=== PATIENT | female | born 1960 | race Caucasian/White ===

== ENCOUNTER → 2022-11-06 13:29 | Outpatient (CLI) | payer BC, SELFPAY ==
--- NOTE | ~2022-11-06 | MR_ITS ---
EXAMINATION: MR lumbar spine wo/w con DATE: 11/06/2022 14:31 INDICATION: Low back pain TECHNIQUE: Magnetic resonance imaging (MRI) of the lumbar spine was performed without intravenous con trast. Sequences included sagittal T2-weighted FSE, sagittal T2-weighted FS FSE, sagittal T1-weighted FSE, and axial T2-weighted FSE. COMPARISON: None FINDINGS: 4 degree lumbar levocurvature. Sagittal alignment is normal. Vertebral body heights are normal. Heter ogeneous right and along marrow signal. No pathologically replacing process. Moderate to severe right -sided predominant disc height loss with associated right-sided fibrovascular degenerative endplate c hanges. Moderate disc height loss at L5-S1 and mild disc height loss at L2-L3 and L3-L4. The conus me dullaris terminates at L1. There is normal signal in the caudal spinal cord. Couple small T2 hyperint ense nonenhancing cysts in the left kidney. Paravertebral soft tissues are unremarkable. Mild enhance ment in the soft tissues the narrowed interspinous processes space at L3-L4 which could be seen with developing [place]'s disease. No other abnormally enhancing lesions identified. The following disc le vels are specifically discussed: T12-L1: Disc is mildly bulging. There is mild right and minimal left facet joint osteoarthritis. Ther e is no neural foraminal stenosis. There is minimal central canal stenosis. L1-L2: Disc is bulging. There is mild right and minimal left facet joint osteoarthritis. There is no neural foraminal stenosis. There is mild central canal stenosis. L2-L3: Disc is bulging with annular fissure. There is mild bilateral facet joint osteoarthritis. Ther e is no neural foraminal stenosis. There is mild central canal stenosis. L3-L4: Disc is bulging. There is mild bilateral facet joint osteoarthritis. There is no neural forami nal stenosis. There is mild central canal stenosis. L4-L5: Disc is bulging with annular fissure. There is mild to moderate bilateral facet joint osteoart hritis. There is mild left and mild to moderate right neural foraminal stenosis. There is mild centra l canal stenosis. L5-S1: Disc is bulging with left foraminal zone annular fissure. There is moderate bilateral facet wild int osteoarthritis. There is mild right and mild to moderate left neural foraminal stenosis. There is no central canal stenosis. IMPRESSION: 1. Mild lumbar levocurvature with moderate to severe right-sided predominant disc height loss at L4-L 5. Otherwise mild lumbar spondylosis. 2. Mild soft tissue enhancement in etiology. The narrowed interspinous space at L3-L4 which could be seen with developing [place]'s disease. Reviewed, dictated and finalized at location [facility]. IMPRESSION: 1. Mild lumbar levocurvature with moderate to severe right-sided predominant di sc height loss at L4-L5. Otherwise mild lumbar spondylosis. 2. Mild soft tissue enhancement in etiology. The narrowed interspinous space at L3-L4 which could be seen with developing [place]'s disease.
== END ==
PROVIDERS: PCP Family Medicine; Visit Provider Family Medicine
DX: M54.30 Sciatica, unspecified side (principal); M47.896 Other spondylosis, lumbar region
CPT/HCPCS: 72158; A9577

== ENCOUNTER → 2023-01-07 15:15 | Outpatient (CLI) | payer BC, SELFPAY ==
--- NOTE | ~2023-01-07 | CT_ITS ---
Non-contrast CT scan of the Abdomen and Pelvis Clinical indication: Adrenal mass Technique: 2.5 mm axial scans were obtained through the abdomen and pelvis without intravenous or or al contrast. Dose reduction technique was used on this scan by utilizing automated exposure control a nd iterative reconstruction technique. The dose-length product (DLP) was 503.88 mGy-cm. Findings: Images through the lung bases reveal no abnormalities. There is no evidence of renal or ureteral calculi. The kidneys and the ureters are nondilated. The liver, spleen, pancreas, gallbladder, and adrenals appear normal. There is no aortic aneurysm. There is no evidence of bowel obstruction. Normal appendix. Images through the pelvis were performed. There is no evidence of ascites or lymphadenopathy. Urinary bladder unremarkable. 4 cm right ovarian cyst present. Impression: No adrenal abnormality evident. Reviewed, dictated and finalized at [facility]. Impression: No adrenal abnormality evident.
== END ==
PROVIDERS: PCP Physician Assistant Medical; Visit Provider Physician Assistant Medical
DX: E27.8 Other specified disorders of adrenal gland (principal); M54.50 Low back pain, unspecified
CPT/HCPCS: 74176

== ENCOUNTER 2023-12-02 03:27 | Day surgery (SDC) | payer BC, SELFPAY ==
[2023-11-14 12:49] VITALS: BMI 22.6
[2023-12-02 06:22] VITALS: BP 129/79; PULSE 73; RESP 17; TEMP 36; O2SAT 100; BMI 21.7
[2023-12-02] MEDS: LACTATED RINGERS 1,000 ML 150 ML IV CONT (06:33)
--- NOTE | 2023-12-02 07:13 | WPDANESEPPF ---
Anes - Initial Pre Proc Eval Procedure: Operation Date: 12/02/23 07:30 Proposed Procedures p Esophagogastroduodenoscopy&Screen Colon - Clay Palomares MD Date/Time: 12/02/23 07:13 Surgeon: Clay Palomares MD Pre Op Diagnosis: neoplasm screening, Dysphagia unspecified Patient Data Age: 62 Gender: F Height: 1.75 m Weight: 66.8 kg Last Vital Signs Temp 96.8 F L 12/02/23 06:22 Pulse 73 12/02/23 06:22 Resp 17 12/02/23 06:22 BP 129/79 12/02/23 06:22 Pulse Ox 100 12/02/23 06:22 O2 Del Method Room Air 12/02/23 06:22 Allergies Allergy/AdvReac Type Severity Reaction Status Date / Time No Known Allergies Allergy Verified 12/02/23 06:19 Home Medications Medication Instructions Recorded Confirmed Type calcium carbonate 600 mg PO BID 10/01/23 12/02/23 History cholecalciferol (vitamin D3) 50 50 - 100 mcg PO DAILY 10/01/23 12/02/23 History mcg (2,000 unit) capsule vitamin K 90 mcg BYMOUTH DAILY 10/01/23 12/02/23 History omega-3 fatty acids 1,000 mg 3,000 mg PO DAILY 11/14/23 12/02/23 History capsule pantoprazole 40 mg tablet,delayed See Rx Instructions .Route 11/26/23 12/02/23 Rx release .COMPLEX #90 tabs Patient hx anesthesia problems: none Family hx anesthesia problems: none Results Review: All pre-operative results and documents have been reviewed as part of the pre-operative evaluation. COUNTS INCLUDE 234 BEDS AT THE [facility] Past Medical History Medical History (Updated 10/01/23 @ 11:54 by Mahogany Thapa PA-C) Adrenal mass not present on follow up CT Lumbar pain Osteoporosis Sciatica Vitamin D deficiency Surgical History Surgical History Hx of colonoscopy 2010 Family History Family History Mother Mouth cancer Hypertension Thyroid disorder Heart disease Father Diabetes mellitus Mouth cancer Grandparent Breast cancer Heart disease Cerebrovascular accident Hypertension Social History Social History Smoking status: Never smoker Alcohol intake: current Drinks per week: 7 Substance use: never Lack of Transportation: No Current Housing: I Have Housing Concerned About Future Housing: No Difficulty Paying Gas/Electric Bills: No Difficulty Paying for Meds: No Currently Unemployed: No Difficulty w/ Childcare or Family Care: No Living arrangements: with family Occupation/Education: occupation 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[employer] [place] Gender identity (if verbalized by the patient): Female Sexual Orientation (if Verbalized by the Patient): Straight or Heterosexual Spiritual care concerns: No Agree to blood products: Yes Anes - Eval Final PreProcedure Day of Procedure 12/02/23 07:13 Patient weight: normal Heart: regular rate and rhythm Lungs: clear to auscultation Airway: Mallampati scale class II Neurological: alert and oriented Last oral intake: >/= 8 hours ASA classification: II Emergent: no Anesthetic plan: proceed Anesthesia type and monitoring: general GIVS and standard monitoring Results Review: All pre-operative results and documents have been reviewed as part of the pre-operative evaluation. Informed Consent: The patient's anesthetic plan and its attendant risks and benefits were discussed with the patient/family/POA. Questions were solicited and answers provided to the satisfaction of the patient/family/POA.
--- NOTE | 2023-12-02 07:26 | PM.HPGS ---
History of Present Illness History of Present Illness Consent: Risks, benefits, and alternatives have been discussed and questions answered. Patient agrees to proceed with procedure. Chief complaint: neoplasm screening, Dysphagia unspecified Narrative: Jenny Hunter is a 62 year old female with history of sinus drainage and one episode of choking on her sleep, recently started using ppi, last colonoscopy 12 years ago Review of Systems Review of Systems: All systems reviewed & are unremarkable except as noted in HPI and below PMFSH Past Medical History Medical History (Updated 10/01/23 @ 11:54 by Mahogany Thapa PA-C) Adrenal mass not present on follow up CT Lumbar pain Osteoporosis Sciatica Vitamin D deficiency Surgical History Surgical History Hx of colonoscopy 2010 Family History Family History Mother Mouth cancer Hypertension Thyroid disorder Heart disease Father Diabetes mellitus Mouth cancer Grandparent Breast cancer Heart disease Cerebrovascular accident Hypertension Social History Social History Smoking status: Never smoker Alcohol intake: current Drinks per week: 7 Substance use: never Lack of Transportation: No Current Housing: I Have Housing Concerned About Future Housing: No Difficulty Paying Gas/Electric Bills: No Difficulty Paying for Meds: No Currently Unemployed: No Difficulty w/ Childcare or Family Care: No Living arrangements: with family Occupation/Education: occupation 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[place] Gender identity (if verbalized by the patient): Female Sexual Orientation (if Verbalized by the Patient): Straight or Heterosexual Spiritual care concerns: No Agree to blood products: Yes Meds Home Medications and Allergies Home Medications Medication Instructions Recorded Confirmed Type calcium carbonate 600 mg PO BID 10/01/23 12/02/23 History cholecalciferol (vitamin D3) 50 50 - 100 mcg PO DAILY 10/01/23 12/02/23 History mcg (2,000 unit) capsule vitamin K 90 mcg BYMOUTH DAILY 10/01/23 12/02/23 History omega-3 fatty acids 1,000 mg 3,000 mg PO DAILY 11/14/23 12/02/23 History capsule pantoprazole 40 mg tablet,delayed See Rx Instructions .Route 11/26/23 12/02/23 Rx release .COMPLEX #90 tabs Allergies Allergy/AdvReac Type Severity Reaction Status Date / Time No Known Allergies Allergy Verified 12/02/23 06:19 Vital Signs Vital Signs - 24 hr 12/02/23 06:22 Temperature 96.8 F L Pulse Rate 73 Respiratory Rate 17 Blood Pressure 129/79 Pulse Oximetry 100 Oxygen Delivery Room Air Exam Const: General: comfortable and no acute distress HENMT: Face/Nose/Sinus: Normal nares present Eyes: General: appearance normal, both eyes and all related structures Neck: Neck: no JVD Resp: Auscultation: clear to auscultation bilaterally Cardio: Rate: regular rate Rhythm: regular rhythm GI: Inspection: non-distended GI Palp: Yes Soft to palpation Skin: General skin exam: normal color Neuro: General: gait normal Speech: normal speech Extrem: General: normal to inspection Psych: Mental Status: mental status grossly normal Assessment and Plan Assessment and plan (1) Screening for colon cancer: Code(s): Z12.11 - Encounter for screening for malignant neoplasm of colon Status: Acute Assessment and Plan: colonoscopy (2) Dysphagia: Code(s): R13.10 - Dysphagia, unspecified Status: Acute Assessment and Plan: will assess with egd
--- NOTE | 2023-12-02 07:38 | SUR.OPER ---
EGD end 732 COLONOSCOPY START 737
[2023-12-02 07:52] VITALS: BP 98/71; PULSE 65; RESP 23; O2SAT 100
[2023-12-02 08:02] VITALS: BP 123/86; PULSE 60; RESP 19; O2SAT 100
[2023-12-02 08:12] VITALS: BP 122/83; PULSE 55; RESP 16; O2SAT 100
== END 2023-12-02 08:19 | disposition home or self-care (01) ==
PROVIDERS: PCP Physician Assistant Medical; Referring Provider Physician Assistant Medical; Visit Provider Internal Medicine Gastroenterology
PROC: 0DJ08ZZ Inspection of Upper Intestinal Tract, Via Natural or Artificial Opening Endoscopic (ICD-10-PCS; CPT 43235; principal; 2023-12-02 07:30)
DX: Z12.11 Encounter for screening for malignant neoplasm of colon (principal); K64.8 Other hemorrhoids; K21.9 Gastro-esophageal reflux disease without esophagitis; R13.10 Dysphagia, unspecified; E55.9 Vitamin D deficiency, unspecified; M81.0 Age-related osteoporosis without current pathological fracture
CPT/HCPCS: 45378; 43239; 88305; J2704; J7120

== ENCOUNTER 2023-12-27 15:36 | Emergency (ER) | payer BC, SELFPAY ==
[2023-12-27 15:44] VITALS: BP 148/79; PULSE 85; RESP 18; TEMP 37; O2SAT 99
--- NOTE | 2023-12-27 15:48 | ED.URI ---
HPI - URI/Sore Throat General Chief Complaint: Upper Respiratory Infection Stated Complaint: throat soreness History of Present Illness HPI Narrative: 63 y/o female presented for c/o sore throat, hoarse voice, nasal congestion onset yesterday. Denies painful swallow. Taking Sudafed. Exposure to covid 3 weeks ago. Denies sob, wheezing, n/v/d/f/c. Related Data Allergies Allergy/AdvReac Type Severity Reaction Status Date / Time No Known Allergies Allergy Verified 12/27/23 15:44 Review of Systems Review of Systems: CONSTITUTIONAL: Denies body aches, fever, chills, or sweats. EYES: Denies visual changes, redness, or discharge. ENT: reports sore throat, rhinorrhea, congestion, denies otalgia. CARDIOVASCULAR: Denies chest pain, palpitations, or edema. RESPIRATORY: Denies dyspnea. GASTROINTESTINAL: Denies abdominal pain, nausea, vomiting, or diarrhea. SKIN: Denies rash, itching, or wounds. MUSCULOSKELETAL: Denies back pain, joint pain, or myalgia. NEUROLOGIC: Denies headache [facility] Past Medical History Medical History Adrenal mass not present on follow up CT Lumbar pain Osteoporosis Sciatica Vitamin D deficiency Surgical History Surgical History Hx of colonoscopy 2010 Family History Family History Mother Mouth cancer Hypertension Thyroid disorder Heart disease Father Diabetes mellitus Mouth cancer Grandparent Breast cancer Heart disease Cerebrovascular accident Hypertension Social History Social History Smoking status: Never smoker Alcohol intake: current Drinks per week: 7 Substance use: never Lack of Transportation: No Current Housing: I Have Housing Concerned About Future Housing: No Difficulty Paying Gas/Electric Bills: No Difficulty Paying for Meds: No Currently Unemployed: No Difficulty w/ Childcare or Family Care: No Living arrangements: with family Occupation/Education: occupation 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 EYES: conjunctivae clear ENT: Mucous membranes moist. TM pearly jordan with normal light reflex bilaterally; no tragal tenderness. Oropharynx not erythematous without lesions. Tonsils not enlarged and without exudate. Hoarse voice. No drooling, no trismus, uvula midline. No tripod positioning, hot potato voice, or soft palate swelling. NECK: Supple. No lymphadenopathy CHEST: Clear to auscultation, breath sounds equal. No respiratory distress, speaks in full sentences. HEART: Regular rate and rhythm. No murmur heard. SKIN: Warm, dry, no rash. NEURO: Alert and oriented x3. Course Course Emergency Course: Patient is aware of diagnosis, understands and agrees to treatment plan. Anticipatory guidance given. Patient agrees to follow-up as directed and is aware of reasons to seek care at the emergency department. Portions of this record may have been created with voice recognition software Level of Care: Express Care Visit Vital Signs Vital signs: Vital Signs Temperature 98.6 F 12/27/23 15:44 Pulse Rate 85 12/27/23 15:44 Respiratory Rate 18 12/27/23 15:44 Blood Pressure 148/79 H 12/27/23 15:44 Pulse Oximetry 99 12/27/23 15:44 Oxygen Delivery Room Air 12/27/23 15:44 Temperature 98.6 F 12/27/23 15:44 Pulse Rate 85 12/27/23 15:44 Respiratory Rate 18 12/27/23 15:44 Blood Pressure 148/79 H 12/27/23 15:44 Pulse Oximetry 99 12/27/23 15:44 Oxygen Delivery Room Air 12/27/23 15:44 [facility] - URI/
[2023-12-27 16:04] LABS: EDSTREPNEGPOS1 Presumptive Negative
== END 2023-12-27 16:16 | disposition home or self-care (01) ==
PROVIDERS: Emergency Provider Nurse Practitioner Family
DX: J06.9 Acute upper respiratory infection, unspecified (principal); Z20.822 Contact with and (suspected) exposure to COVID-19; M81.0 Age-related osteoporosis without current pathological fracture
CPT/HCPCS: 87081; 87426; 87880; 99213; G0463